=== PATIENT | female | born 1945 | race Caucasian/White ===

== ENCOUNTER 2017-03-19 18:20 | Emergency (ER) | payer MEDICARE, OTHER ==
[2017-03-19] MEDS ORDERED: IPRATROPIUM/ALBUTEROL 3 ML VIAL NEB ONE ×2 (18:36→20:35)
[2017-03-19] MEDS ORDERED: SODIUM CHLORIDE 0.9% 1000ML 1,000 ML IVS PRN (18:36)
--- NOTE | 2017-03-19 18:41 | ED.PDOC ---
History of Present Illness - General Source: patient, RN notes reviewed, Vital Signs reviewed, family Exam Limitations: no limitations - History of Present Illness Initial Comments: Patient comes in with c/o SOB, dizziness and L upper chest pain. She was at dialysis this morning and only did a little less than 3 hours due to wanting to come see her grandson play baseball. Just after dialysis she developed some L upper chest pain, this was ~3 hours ago. At the baseball game the pain continued and she started to get dizzy and SOB. Some nurses at the game checked her and could not get a blood pressure. EMS put her on 3L O2 and her SOB is better. Reports she is only dizzy if she stands up. EMS only got BP of 99/palp. Also, on Tue she had her R lung drained by her truck caterer. No work done on the L lung. Timing/Duration: 1-3 hours Severity: moderate Activities at Onset: other - Just finished Dialysis Possible Cause: frequent episodes - She has COPD and Asthma Improving Factors: rest, other - Oxygen and laying down Worsening Factors: movement - and standing up Respiratory Risk Factors: no cause identified <Eevlyn Edward - Last Filed: 03/19/17 18:58> <Rand Bright - Last Filed: 03/19/17 20:03> - General Chief Complaint: Respiratory Problem Stated Complaint: Shortness of breath and dizziness Time Seen by Provider: 03/19/17 18:20 - History of Present Illness Allergies/Adverse Reactions: Allergies Codeine Allergy (Verified 03/19/17 18:48) Home Medications: Ambulatory Orders Allopurinol 03/19/17 Aspirin 03/19/17 Calcitriol 03/19/17 Diltiazem HCl 03/19/17 Duoneb 03/19/17 Furosemide 03/19/17 Humalog 03/19/17 Isosorbide Mononitrate 03/19/17 Lantus Solostar 03/19/17 Levetiracetam 03/19/17 Levothyroxine Sodium 03/19/17 Lisinopril 03/19/17 Nortriptyline HCl 03/19/17 Pentoxifylline 03/19/17 Pravastatin Sodium 03/19/17 Proair Hfa 03/19/17 Protonix 03/19/17 Review of Systems - Review of Systems Constitutional: States: malaise, weakness. Denies: chills, fever EENTM: States: no symptoms reported Respiratory: States: short of breath. Denies: cough Cardiology: States: chest pain. Denies: edema, palpitations, syncope Gastrointestinal/Abdominal: Denies: abdominal pain, nausea, vomiting Musculoskeletal: States: joint pain - L anterior shoulder pain/chest pain Skin: States: no symptoms reported Neurological: States: other - dizziness Hematologic/Lymphatic: States: no symptoms reported <Evelyn Edward - Last Filed: 03/19/17 18:58> Physical Exam - Physical Exam General Appearance: Alert, Comfortable, No apparent distress, Well Developed, Well Groomed, Well Nourished Eyes, Ears, Nose, Throat Exam: other - Dry mucous membranes Neck: non-tender, normal inspection Respiratory: decreased breath sounds - throughout, accessory muscle use Cardiovascular/Chest: regular rate, rhythm, no gallop, no JVD, no murmur Gastrointestinal/Abdominal: normal bowel sounds, non tender, soft Extremity: normal range of motion, non-tender Neurologic: no motor/sensory deficits, alert, normal mood/affect, oriented x 3 Skin Exam: normal color, warm/dry <Evelyn Edward - Last Filed: 03/19/17 18:58> Progress - Progress Progress: 03/19/17 18:[address] Bright <Evelyn Edward - Last Filed: 03/19/17 18:58> - Progress Progress: 03/19/17 19:26 Patient continued to have dyspnea, although her saturations were normal. She was placed on bi-pap. Her Troponin I was elevated at 0.31. Since all her care is a [facility] in [place], arrangements were made for transfer. Dr. Oquendo accepted at 1927. Instructed to give Lovenox for anti-coagulation. 03/19/17 20:01 Patient's daughter got here at 1945 with Patient's medication list. - EKG/XRAY/CT EKG: Sinus - 92 bpm, nonspecific ST T wave Chg Comments: NML axis, Prolonged QT, No comp. available-NSR with prolonged QT XRAY: chest Xray Comments: RML infiltrate <Rand Bright - Last Filed: 03/19/17 20:03> Departure <Evelyn Edward - Last Filed: 03/19/17 18:58> - Departure Time of Disposition: 19:35 <Rand Bright - Last Filed: 03/19/17 20:03> - Departure Clinical Impression: Acute bronchospasm, Elevated troponin, ESRD (end stage renal disease) on dialysis, Pulmonary infiltrate in right lung on CXR Coronary artery disease Qualifiers: Coronary Disease-Associated Artery/Lesion type: unspecified vessel or lesion type [place] vs. transplanted heart: [place] heart Associated angina: angina presence unspecified Qualified Code(s): I25.10 - Atherosclerotic heart disease of [place] coronary artery without angina pectoris Diabetes mellitus Qualifiers: Diabetes mellitus type: type 2 Diabetes mellitus complication status: with kidney complications Diabetes mellitus complication detail: with chronic kidney disease Chronic kidney disease stage: on chronic dialysis Qualified Code(s): E11.22 - Type 2 diabetes mellitus with diabetic chronic kidney disease Chest pain Qualifiers: Chest pain type: unspecified Qualified Code(s): R07.9 - Chest pain, unspecified Disposition: Transfer to Hospital Home Medications: Ambulatory Orders Allopurinol 03/19/17 Aspirin 03/19/17 Calcitriol 03/19/17 Diltiazem HCl 03/19/17 Duoneb 03/19/17 Furosemide 03/19/17 Humalog 03/19/17 Isosorbide Mononitrate 03/19/17 Lantus Solostar 03/19/17 Levetiracetam 03/19/17 Levothyroxine Sodium 03/19/17 Lisinopril 03/19/17 Nortriptyline HCl 03/19/17 Pentoxifylline 03/19/17 Pravastatin Sodium 03/19/17 Proair Hfa 03/19/17 Protonix 03/19/17 Transfer to Outside Facility - Transfer Information Accepting Provider:: Dr. Oquendo Accepting Facility: [facility] Reason for Transfer: required specialist not available <Rand Bright - Last Filed: 03/19/17 20:03>
[2017-03-19] MEDS ORDERED: NOREPINEPHRINE BITARTRATE 4 MG/4 ML VIAL IVPB ONE (19:36)
[2017-03-19] MEDS ORDERED: DEXTROSE 5% 250ML 250 ML ONE (19:37)
[2017-03-19] MEDS ORDERED: ENOXAPARIN SODIUM 80 MG/0.8 ML SYG SUBCU ONE (19:40)
[2017-03-19 19:56] VITALS: TEMP 97; O2SAT 93
--- NOTE | 2017-03-19 20:12 | RAD ---
EXAM DESCRIPTION: Chest,1 View CLINICAL HISTORY: 71 years, Female, SOB w/ L upper chest pain COMPARISON: None. FINDINGS: A single frontal chest radiograph was performed. The lungs are moderately expanded. The LEFT lung is clear. A moderate RIGHT pleural effusion with adjacent hazy opacities noted. The cardiac silhouette is borderline enlarged and the aorta is calcified and tortuous, border forming on the RIGHT. IMPRESSION: RIGHT pleural effusion with adjacent atelectasis. A component of pneumonia cannot be excluded. Aortic atherosclerosis. Electronically signed by: Pura Gallego MD 03/19/2017 8:11 PM CDT
[2017-03-19 20:37] VITALS: BP 105/57
[2017-03-19] MEDS ORDERED: NOREPINEPHRINE BITARTRATE 4 MG in DEXTROSE 5% 250ML 250 ML IVPB SCH (21:00)
== END 2017-03-19 20:32 | disposition short-term general hospital (02) ==
LOC: ER 18:20
DX: I25.10 Atherosclerotic heart disease of native coronary artery without angina pectoris (principal); E11.22 Type 2 diabetes mellitus with diabetic chronic kidney disease; N18.6 End stage renal disease; Z79.4 Long term (current) use of insulin; R07.9 Chest pain, unspecified; R79.89 Other specified abnormal findings of blood chemistry; J44.9 Chronic obstructive pulmonary disease, unspecified; J98.01 Acute bronchospasm; R91.8 Other nonspecific abnormal finding of lung field; Z88.6 Allergy status to analgesic agent; Z79.82 Long term (current) use of aspirin; Z79.899 Other long term (current) drug therapy; Z99.2 Dependence on renal dialysis
CPT/HCPCS: 36415; 71010; 80053; 82550; 82553; 83880; 84484; 85025; 93005; 94640; 94660; J1650; J7030; J7060; J7620